=== PATIENT | male | born 1945 | race Caucasian/White ===

== ENCOUNTER 2016-11-20 09:23 | Emergency (ER) | payer OTHER ==
--- NOTE | 2016-11-20 09:38 | CPEKG ---
Heart Rate: 64 RR Interval: 938 P-R Interval: 168 QRSD Interval: 110 QT Interval: 432 QTC Interval: 446 P Baskin: 5 QRS Baskin: -18 T Wave Baskin: 20 EKG Severity - ABNORMAL ECG - EKG Impression: SINUS RHYTHM EKG Impression: INCOMPLETE RIGHT BUNDLE BRANCH BLOCK Electronically Signed By: Quintin Khanna 20-Nov-2016 14:54:26
--- NOTE | 2016-11-20 09:56 | EDPHY ---
H & P Time Seen by Provider: 11/20/16 09:31 HPI/ROS: CHIEF COMPLAINT: Hypertension, ataxia HISTORY OF PRESENT ILLNESS: The patient presents to the ED with a 2 day history of fairly significant hypertension with systolic blood pressure in the 200 range and a reported persistent ataxia. The patient does have a history of a stroke in 2011. The patient is currently taking a 81 mg aspirin. The patient denies any focal numbness or weakness. He has no complaints of headache. The patient denies additional neurologic symptoms. REVIEW OF SYSTEMS: A comprehensive 10 point review of systems is otherwise negative aside from elements mentioned in the history of present illness. Source: Patient Exam Limitations: No limitations - Personal History Current Tetanus/Diphtheria Vaccine: Yes - Medical/Surgical History Hx Asthma: No Hx Chronic Respiratory Disease: No Hx Diabetes: No Hx Cardiac Disease: No Hx Renal Disease: No Hx Cirrhosis: No Hx Alcoholism: No Hx HIV/AIDS: No Hx Splenectomy or Spleen Trauma: No Other PMH: htn, high chol, past mini muhammad - Social History Smoking Status: Never smoked - Physical Exam Exam: General Appearance: Alert, no distress Eyes: Pupils equal and round no pallor or injection ENT, Mouth: Mucous membranes moist Respiratory: There are no retractions, lungs are clear to auscultation Cardiovascular: Regular rate and rhythm Gastrointestinal: Abdomen is soft and nontender, no masses, bowel sounds normal Neurological: Alert and oriented x4, 5/5 strength noted all 4 extremities, cranial nerves 2-12 intact, patient does have some slight dysmetria with finger- to-nose bilaterally Skin: Warm and dry, no rashes Musculoskeletal: Neck is supple nontender Extremities: symmetrical, full range of motion Constitutional: Initial Vital Signs Temperature (C) 36.3 C 11/20/16 09:27 Heart Rate 73 11/20/16 09:27 Respiratory Rate 16 11/20/16 09:27 Blood Pressure 200/114 H 11/20/16 09:27 O2 Sat (%) 97 11/20/16 09:27 O2 Delivery Mode Room Air Allergies/Adverse Reactions: Penicillins Allergy (Verified 11/20/16 09:24) Home Medications: Medication Instructions Recorded Multivitamins [Multivitamin (*)] 1 tab PO DAILY 01/25/12 Aspirin [Aspirin 81mg (*)] 81 mg PO DAILY #100 tab 01/27/12 Lisinopril [Zestril 20 mg (*)] 20 mg PO DAILY 09/30/14 Simvastatin [Zocor 20 mg] 20 mg PO HS 09/30/14 Albuterol [Proventil Inhaler HFA 1 - 2 puffs IH Q4H PRN #1 mdi 10/01/14 (*)] Medical Decision Making - Diagnostics EKG Interpretation: EKG: Complete interpretation has been separately recorded in the [employer] archive. Summary impression: Sinus rhythm, incomplete right bundle curtis, nonspecific ST T wave changes noted Imaging: MRI brain: Old cerebellar stroke noted, no evidence of acute infarct. Study results reported to me by Dr. Kwesi Davis. 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 ED Course/Re-evaluation: The patient presents to the emergency department with hypertension and a 2 day history of ataxia. The patient does have a slightly abnormal [id number] noted bilaterally. The patient is not a candidate for thrombolytics therapy based upon the timing of the symptoms. The patient reports his symptoms began upon awakening 2 days ago. That was at 7 o'clock in the morning. I reviewed the patient's past medical records from 2011. He was noted to have a cerebellar stroke at that point time secondary to an occluded left vertebral artery. The patient has no evidence of an acute thrombosis or dissection on his CT angiogram. The patient does have a chronic cerebellar stroke. He did have slight hypertension in the ED. The patient's blood pressure was rechecked by myself at 1:00 p.m. and found to be 160/95. The patient was offered admission to the hospital but prefers to go home and follow up with his primary care provider for a blood pressure recheck tomorrow. The patient has no acute neurologic complaints currently and his ataxia has resolved. At this point time I see no evidence of an acute stroke. The patient is currently on appropriate anti-platelet therapy. He is not anticoagulated. He has no evidence of an acute vascular change noted on his CT angiographic studies. The patient will be discharged home at this point time. He will return to the ED for any recurrent neurologic symptoms, markedly elevated blood pressure or other concerns. Differential Diagnosis: Differential diagnosis considered includes acute stroke, TIA, labyrinthitis, vertigo, hypertensive emergency - Data Points Laboratory Results: Laboratory Results 11/20/16 09:45 11/20/16 09:45 11/20/16 09:45 WBC 4.76 10^3/uL (3.80-9.50) RBC 4.56 10^6/uL (4.40-6.38) Hgb 14.6 g/dL (13.7-17.5) Hct 43.4 % (40.0-51.0) MCV 95.2 fL (81.5-99.8) MCH 32.0 pg (27.9-34.1) MCHC 33.6 g/dL (32.4-36.7) RDW 13.6 % (11.5-15.2) Plt Count 149 L 10^3/uL (150-400) MPV 8.7 fL (8.7-11.7) Neut % (Auto) 53.2 % (39.3-74.2) Lymph % (Auto) 31.1 % (15.0-45.0) Parker % (Auto) 9.2 % (4.5-13.0) Eos % (Auto) 5.5 % (0.6-7.6) Baso % (Auto) 0.8 % (0.3-1.7) Nucleat RBC Rel Count 0.0 % (0.0-0.2) Absolute Neuts (auto) 2.53 10^3/uL (1.70-6.50) Absolute Lymphs (auto) 1.48 10^3/uL (1.00-3.00) Absolute Monos (auto) 0.44 10^3/uL (0.30-0.80) Absolute Eos (auto) 0.26 10^3/uL (0.03-0.40) Absolute Basos (auto) 0.04 10^3/uL (0.02-0.10) Absolute Nucleated RBC 0.00 10^3/uL (0-0.01) Immature Gran % 0.2 % (0.0-1.1) Immature Gran # 0.01 10^3/uL (0.00-0.10) Sodium 140 mEq/L (134-144) Potassium 4.0 mEq/L (3.5-5.2) Chloride 106 mEq/L (97-110) Carbon Dioxide 25 mEq/l (22-31) Anion Gap 9 mEq/L (8-16) BUN 18 mg/dL (7-23) Creatinine 0.9 mg/dL (0.7-1.3) Estimated GFR > 60 Glucose 112 H mg/dL (70-100) Calcium 9.1 mg/dL (8.5-10.4) Departure - Departure Disposition: Home, Routine, Self-Care Clinical Impression: Dizziness, 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 Please return to the ED for any recurrent neurologic symptoms, headache, markedly elevated blood pressure or other concerns. 2. Please follow up with Dr. Escobedo for a blood pressure recheck in the next 2-3 days. Referrals: ERIN ESCOBEDO [Primary Care Provider] - As per Instructions
[2016-11-20 10:01] LABS: % IMMATURE GRANULYOCYTES 0.2 % (0.0-1.1); ABSOLUTE IMMATURE GRANULOCYTES 0.01 10^3/uL (0.00-0.10); ADD DIFF? NO; ADD MORPH? NO; ADD SCAN? NO; ATYPICAL LYMPHOCYTE FLAG 10 (0-99); FRAGMENT RBC FLAG 0 (0-99); HEMATOCRIT 43.4 % (40.0-51.0); HEMOGLOBIN 14.6 g/dL (13.7-17.5); LEFT SHIFT FLG 0 (0-99); LIPEMIA HEMOLYSIS FLAG 80 (0-99); MEAN CELL HEMOGLOBIN CONCENTR. 33.6 g/dL (32.4-36.7); MEAN CELL VOLUME 95.2 fL (81.5-99.8); MEAN PLATELET VOLUME 8.7 fL (8.7-11.7); PLATELET CLUMPS FLAG 0 (0-99); PLATELET COUNT 149 10^3/uL (150-400); RED BLOOD CELL COUNT 4.56 10^6/uL (4.40-6.38); RED CELL DISTRIBUTION WIDTH 13.6 % (11.5-15.2)
[2016-11-20 10:08] LABS: ANION GAP 9 mEq/L (8-16); CALCIUM 9.1 mg/dL (8.5-10.4); CARBON DIOXIDE 25 mEq/l (22-31); CHLORIDE 106 mEq/L (97-110); CREATININE 0.9 mg/dL (0.7-1.3); GLOMERULAR FILTRATION RATE > 60; GLUCOSE 112 mg/dL (70-100); SODIUM 140 mEq/L (134-144)
[2016-11-20] MEDS ORDERED: IOPAMIDOL (ISOVUE 370) 100 ML BTL IV ONE (10:19)
--- NOTE | 2016-11-20 11:12 | MR ---
MRI of the Brain (Without Contrast) 10:24 a.m. Indication: Acute ataxia. Evaluate for CVA. Technique: Sagittal and axial T1, axial fast inversion recovery, fast T2-weighted, and diffusion-omari ghted axial images were obtained without contrast. Comparison: MRI brain dated January 25, 2012 Findings: Diffusion weighted imaging is normal with no evidence of acute ischemia. The old left cere bellar ischemic infarction has undergone volume loss and has minimal residual focal T2 hyperintense g liosis. No acute intracranial hemorrhage, subdural hematoma, or mass. The mild volume of hyperintense periven tricular and subcortical white matter disease in the frontal and parietal lobes on the T2 and FLAIR-w eighted sequences has minimally increased since 2011. The ventricular system is normal caliber and mi dline. Normal flow-void in the superior sagittal sinus, basilar artery, and bilateral internal carotid arter ies indicating patency. The pituitary gland, orbits, and cervicooccipital junction are unremarkable. Pituitary gland is normal in size. Left maxillary and sphenoid sinus disease has completely resolved since 2011 and ethmoid and right maxillary sinus disease has significantly improved. Minimal residual mucosal thickening is present in the right maxillary sinus. Impression: 1. Negative. No acute ischemia or hemorrhage. 2. Old left cerebellar infarction has minimal residual gliosis. 3. Mild nonspecific periventricular and subcortical white matter disease has minimally increased sinc e 2011. 4. Marked improvement of sinus disease since 2011. Comment: Results were discussed with Dr. Quintin Khanna at 11 a.m. November 20, 2016.
[2016-11-20 11:52] VITALS: PULSE 71; RESP 18; O2SAT 96
--- NOTE | 2016-11-20 12:20 | CT ---
CT angiogram neck with IV contrast History: Ataxia. History of prior occluded left vertebral artery. Comparison: January 2012. Technique: 0.625-mm helical images were obtained of the neck postintravenous contrast with 95 mL Iso ping-370 contrast. Multiplanar and 3-D evaluation were performed at the workstation. Findings: There is normal branching of the great vessels from the aortic arch. There is calcified at hetotic plaque at the right carotid bulb and proximal internal carotid artery. There is a segment of stenosis in the proximal right internal carotid artery of 50-60% extending for 7 mm. There is less th an 50% stenosis at the carotid bulb. There is calcified atherosclerotic plaque at the left carotid bu lb and proximal internal carotid artery. There is 50-60% stenosis in the proximal left internal carot id artery extending for 8 mm. The proximal left vertebral artery is chronically occluded with partial filling of the mid vertebral artery from collaterals. There is reflux from the right vertebral arter y and basilar artery filling the distal left vertebral artery to the posteroinferior cerebellar arter y. The right vertebral artery is widely patent without stenosis or dissection. There is a focal area of tortuosity at the level of C1-C2 and C2-C3. Multilevel degenerative disk and degenerative joint disease are seen in the cervical spine. No signif icant lymphadenopathy. Scarring is seen in both lung apices. There is evidence of underlying intersti tial lung disease Impression: Chronically occluded left vertebral artery as above. Mild to moderate stenosis from calci fied atherosclerotic plaque at the proximal internal carotid arteries bilaterally. CT angiogram head with IV contrast History: Acute ataxia. Technique: 0.625-mm helical images were obtained of the head postintravenous contrast with 95 mL Isov ue-370 contrast. Multiplanar and 3-D evaluation was performed at the workstation. Findings: No evidence for significant stenosis or evidence for thrombus. No evidence for aneurysm or arterial venous malformation. Neither posterior communicating artery is patent. No evidence for veno us sinus thrombosis. Impression: No significant stenosis or evidence for acute thrombus. Results called to Dr. Quintin Slaughter.
[2016-11-20 13:08] VITALS: BP 159/106; TEMP 99
== END 2016-11-20 13:07 | disposition home or self-care (01) ==
DX: R27.0 Ataxia, unspecified (principal); I10 Essential (primary) hypertension; Z86.73 Personal history of transient ischemic attack (TIA), and cerebral infarction without residual deficits; Z79.82 Long term (current) use of aspirin
CPT/HCPCS: 70496; 70498; 70551; 93005; 99285; Q9967

== ENCOUNTER → 2019-02-21 | Outpatient (CLI) | payer OTHER | LOC: FIMAGING 09:15 | PROVIDERS: ATTEND Family Medicine | DX: R93.7 Abnormal findings on diagnostic imaging of other parts of musculoskeletal system (principal) | CPT/HCPCS: 78306; A9503 ==